=== PATIENT | female | born 1985 | race Caucasian/White ===

== ENCOUNTER 2021-10-18 08:36 | Emergency (ER) | payer OTHER ==
[~2021-10-18] VITALS: Ht 162.6 cm; Wt 118.2 kg
[2021-10-18 08:53] VITALS: TEMP 98
[2021-10-18 10:06] LABS: BASO % 0.5 % (0.0-2.0); EOS # 0.1 K/mm3 (0.0-0.7); GRAN # 3.7 K/mm3 (1.4-6.5); HEMATOCRIT 37.2 % (37.0-47.0); HEMOGLOBIN 12.1 g/dl (12.5-16.0); LYMPH # 1.5 K/mm3 (1.2-3.4); LYMPH % 26.3 % (20.0-51.0); MEAN CELL VOLUME 80 fl (80.0-100.0); MEAN CORPUSCULAR HEMOGLOBIN 26 pg (27-31); MEAN CORPUSCULAR HGB CONC 33 g/dl (33.0-37.0); MEAN PLATELET VOLUME 9.4 fl (7.4-10.4); MONO # 0.4 K/mm3 (0.1-0.6); MONO % 7.5 % (1.7-9.3); PLATELET COUNT 394 K/mm3 (130-400); RED BLOOD COUNT 4.66 M/mm3 (4.10-5.30); REDCELL DISTRIBUTION WIDTH-CV 14.6 % (11.5-14.5)
[2021-10-18 10:18] LABS: ALBUMIN 3.4 gm/dL (3.5-5.0); BILIRUBIN,TOTAL 0.2 mg/dL (0.2-1.2); CREATININE, serum 0.67 mg/dL (0.57-1.11); POTASSIUM 3.7 mmol/L (3.5-4.5); TOTAL PROTEIN 7.4 gm/dL (6.2-8.1)
[2021-10-18 10:37] LABS: TSH w REFLEX 1.002 uIU/mL (0.350-4.940)
[2021-10-18 10:50] VITALS: BP 113/81; PULSE 79
== END 2021-10-18 10:50 | disposition home or self-care (01) ==
LOC: COL.ER 08:36
PROVIDERS: Family Medicine
DX: F41.9 Anxiety disorder, unspecified (principal)

== ENCOUNTER 2021-11-15 16:51 | Emergency (ER) | payer OTHER ==
[~2021-11-15] VITALS: Ht 162.6 cm; Wt 113.2 kg
[2021-11-15 17:02] VITALS: TEMP 98.3
[2021-11-15 17:58] LABS: BASO # 0.1 K/mm3 (0.0-0.2); BASO % 0.7 % (0.0-2.0); EOS # 0.2 K/mm3 (0.0-0.7); EOS % 1.9 % (0.0-4.0); GRAN # 5.8 K/mm3 (1.4-6.5); GRAN % 68.5 % (42.2-75.2); HEMATOCRIT 38.9 % (37.0-47.0); HEMOGLOBIN 12.6 g/dl (12.5-16.0); LYMPH # 1.8 K/mm3 (1.2-3.4); LYMPH % 21.3 % (20.0-51.0); MEAN CELL VOLUME 82 fl (80.0-100.0); MEAN CORPUSCULAR HEMOGLOBIN 26 pg (27-31); MEAN CORPUSCULAR HGB CONC 32 g/dl (33.0-37.0); MEAN PLATELET VOLUME 10.1 fl (7.4-10.4); MONO # 0.6 K/mm3 (0.1-0.6); MONO % 7.2 % (1.7-9.3); PLATELET COUNT 359 K/mm3 (130-400); RED BLOOD COUNT 4.77 M/mm3 (4.10-5.30); REDCELL DISTRIBUTION WIDTH-CV 14.9 % (11.5-14.5)
[2021-11-15 18:20] LABS: ALBUMIN 3.8 gm/dL (3.5-5.0); BILIRUBIN,TOTAL 0.4 mg/dL (0.2-1.2); C-REACTIVE PROTEIN 1.16 mg/dL (0.00-0.50); CALCIUM 9.3 mg/dL (8.4-10.2); CREATININE, serum 0.65 mg/dL (0.57-1.11); POTASSIUM 4.3 mmol/L (3.5-4.5); TOTAL PROTEIN 7.8 gm/dL (6.2-8.1)
[2021-11-15 18:41] LABS: PROLACTIN 10.7 ng/mL (5.18-26.53); TSH w REFLEX 0.709 uIU/mL (0.350-4.940)
[2021-11-15 19:20] VITALS: BP 128/77; PULSE 67
== END 2021-11-15 19:28 | disposition home or self-care (01) ==
LOC: COL.ER 16:51
PROVIDERS: Nurse Practitioner
DX: R55 Syncope and collapse (principal)
CPT/HCPCS: J7030

== ENCOUNTER 2023-02-01 12:11 | Day surgery (SDC) | payer OTHER ==
[~2023-02-01] VITALS: Ht 162.7 cm; Wt 119.0 kg
[~2023-02-01 12:11] MED LIST: COZAAR 25MG25 MG/TAB PO; MAGNESIUM250 M1 PO; ZOLOFT 25MG25 MG PO
[2023-02-01 12:40] VITALS: BP 131/62; PULSE 76; TEMP 98
[2023-02-01] MEDS ORDERED: FERRO-TIME325 MG PO (12:46)
[2023-02-01] MEDS ORDERED: PRINIVIL10 MG PO (12:46)
--- NOTE | 2023-02-01 15:06 | NUR ---
Pt ambulated to [facility] accompanied by . Pt is scheduled for a Loop recorder placement. EKG done. Meds and HX reviewed with the pt. Consent for the procedure signed. Loop recorder was placed. Pt was given discharge education and information. No questions at this time. Pt exited the unit with a steady gait.
== END 2023-02-01 15:11 | disposition home or self-care (01) ==
LOC: COL.CAR 12:11
DX: I95.1 Orthostatic hypotension (principal); I10 Essential (primary) hypertension; R00.2 Palpitations; Z86.16 Personal history of COVID-19; Z79.899 Other long term (current) drug therapy
CPT/HCPCS: C1764

== ENCOUNTER 2023-08-13 18:59 | Emergency (ER) | payer OTHER ==
[~2023-08-13] VITALS: Ht 162.6 cm; Wt 122.7 kg
[~2023-08-13 18:59] MED LIST changes: +FERRO-TIME325 MG PO; +PRINIVIL10 MG PO
[2023-08-13 19:23] LABS: BASO # 0.1 K/mm3 (0.0-0.2); BASO % 0.5 % (0.0-2.0); EOS # 0.2 K/mm3 (0.0-0.7); EOS % 1.4 % (0.0-4.0); GRAN % 65.8 % (42.2-75.2); HEMOGLOBIN 11.4 g/dl (12.5-16.0); LYMPH # 2.7 K/mm3 (1.2-3.4); MEAN CELL VOLUME 79 fl (80.0-100.0); MEAN CORPUSCULAR HEMOGLOBIN 25 pg (27-31); MEAN CORPUSCULAR HGB CONC 32 g/dl (33.0-37.0); MEAN PLATELET VOLUME 9.6 fl (7.4-10.4); MONO # 0.7 K/mm3 (0.1-0.6); MONO % 6.5 % (1.7-9.3); PLATELET COUNT 405 K/mm3 (130-400); RED BLOOD COUNT 4.55 M/mm3 (4.10-5.30); REDCELL DISTRIBUTION WIDTH-CV 15.4 % (11.5-14.5)
[2023-08-13 19:26] LABS: HEMATOCRIT 35.9 % (37.0-47.0)
[2023-08-13 19:38] LABS: ALANINE AMINOTRANSFERASE 22 U/L (0-55); ALBUMIN 3.5 g/dL (3.5-5.0); ALKALINE PHOSPHATASE 125 U/L (40-150); ANION GAP 12 mmol/L (7-16); AST,SGOT 22 U/L (5-34); BILIRUBIN,TOTAL 0.2 mg/dL (0.2-1.2); BLOOD UREA NITROGEN 15 mg/dL (7-19); CALCIUM 9.2 mg/dL (8.4-10.2); CHLORIDE 105 mEq/L (98-107); CREATININE, serum 0.74 mg/dL (0.57-1.11); GLUCOSE 87 mg/dL (70-99); SODIUM 137 mEq/L (136-145); TOTAL PROTEIN 7.9 g/dl (6.2-8.1)
[2023-08-13 19:47] LABS: TROPONIN-I < 0.010 ng/mL (0.00-0.033)
[2023-08-13 20:22] VITALS: BP 125/74; PULSE 73; TEMP 98.2
== END 2023-08-13 20:26 | disposition home or self-care (01) ==
LOC: COL.ER 18:59
PROVIDERS: Nurse Practitioner Primary Care
DX: R07.9 Chest pain, unspecified (principal)